=== PATIENT | female | born 1975 | race Caucasian/White ===

== ENCOUNTER 2017-03-09 17:49 | Emergency (ER) | payer BC ==
[2017-03-09 18:25] VITALS: BP 113/82
--- NOTE | 2017-03-09 18:35 | UC ---
FLU HPI - HPI Summary HPI Summary: came home from work sick--fatigue fever worsening cough, - History of Current Complaint Chief Complaint: UCRespiratory Stated Complaint: COUGH/FATIGUE/CONGESTION Time Seen by Provider: 03/09/17 18:15 Hx Obtained From: Patient Hx Last Menstrual Period: ONSET TODAY ?: No Onset/Duration: Sudden Onset, Lasting Days - 2, Still Present Severity Currently: Moderate Severity Initially: Moderate Pain Intensity: 6 Pain Scale Used: 0-10 Numeric Associated Signs & Symptoms: Positive: Fever, Myalgia, Cough, Sore Throat, Headache Related Hx: Possible Flu/Infectious Exposure - Allergy/Home Medications Allergies/Adverse Reactions: Allergies Allergy/AdvReac Type Severity Reaction Status Date / Time No Known Allergies Allergy Verified 03/09/17 18:14 PMH/Surg Hx/FS Hx/Imm Hx Previously Healthy: Yes - psorasis - Surgical History Surgical History: Yes Surgery Procedure, Year, and Place: left knee 1996, right labriium 1999 and 2013 ; facial - Family History Known Family History: Positive: None, Other - mother has hx of osteoporosis - Social History Occupation: Employed Full-time Lives: With Family Alcohol Use: Occasionally Substance Use Type: None Smoking Status (MU): Never Smoked Tobacco - Immunization History Most Recent Influenza Vaccination: NOT IN 2017 Review of Systems Constitutional: Fever, Chills, Fatigue Skin: Negative Eyes: Negative ENT: Sore Throat Respiratory: Cough Cardiovascular: Chest Pain - center of chest with cough Gastrointestinal: Negative Genitourinary: Negative Motor: Negative Neurovascular: Negative Musculoskeletal: Arthralgia, Myalgia Neurological: Negative, Headache Psychological: Negative Is Patient Immunocompromised?: No All Other Systems Reviewed And Are Negative: Yes Physical Exam Triage Information Reviewed: Yes Appearance: Ill-Appearing, Pain Distress, Thin Vital Signs: Initial Vital Signs Temp 100.2 F 03/09/17 18:16 Pulse 112 03/09/17 18:16 Resp 18 03/09/17 18:16 BP 113/82 03/09/17 18:16 Pulse Ox 97 03/09/17 18:16 Vital Signs Reviewed: Yes Eye Exam: Normal Eyes: Positive: Conjunctiva Clear ENT Exam: Normal ENT: Positive: Normal ENT inspection, Hearing grossly normal, Pharynx normal, TMs normal, Uvula midline. Negative: Nasal congestion, Tonsillar swelling, Tonsillar exudate, Trismus, Muffled voice, Hoarse voice, Dental tenderness Dental Exam: Normal Neck exam: Normal Neck: Positive: Supple, Nontender, No Lymphadenopathy Respiratory Exam: Normal Respiratory: Positive: Chest non-tender, Lungs clear, Normal breath sounds, No respiratory distress, No accessory muscle use Cardiovascular Exam: Normal Cardiovascular: Positive: RRR, No Murmur, Pulses Normal, Brisk Capillary Refill Musculoskeletal Exam: Normal Musculoskeletal: Positive: Strength Intact, ROM Intact, No Edema Neurological Exam: Normal Neurological: Positive: Alert, Muscle Tone Normal Psychological Exam: Normal Skin Exam: Normal - Additional Comments Did not get flu vaccine 2016/2017 season Flu Course/Dx - Course Course Of Treatment: levaquin, tylenol ibuprofen robitussin and codiene follow with pcp - Differential Dx/Diagnosis Provider Diagnoses: RML Pneumonia Discharge - Discharge Plan Condition: Stable Disposition: HOME Prescriptions: Guaifenesin-Codeine [Guaiatussin AC] 5 - 10 ml PO Q6HR PRN #60 ml MDD 40ml PRN Reason: cough Levofloxacin TAB* [Levaquin TAB*] 500 mg PO DAILY #10 tab Patient Education Materials: Pneumonia (ED) Referrals: [facility] [[facility]] - 3 Days
[2017-03-09] MEDS ORDERED: guaiFENesin/CODIEN 100MG-10MG* 5 ML UDC PO ONE (18:51)
--- NOTE | 2017-03-09 19:34 | RAD ---
INDICATION: Cough, fever, shortness of breath. COMPARISON: No relevant prior exams available on the [facility] for comparison. TECHNIQUE: Dual energy PA and routine lateral views of the chest were obtained. REPORT: Alveolar consolidation at the RIGHT middle lobe consistent with pneumonia. Negative for pleural effusion or pneumothorax. Elevated lung volumes. The heart, pulmonary vasculature, and mediastinal contours are unremarkable. IMPRESSION: RIGHT middle lobe pneumonia. Radiographic follow-up after therapy suggested to assess for resolution and exclude an underlying predisposing lesion.
== END 2017-03-09 19:34 | disposition home or self-care (01) ==
LOC: UCCORT 17:49
DX: J18.1 Lobar pneumonia, unspecified organism (principal)
CPT/HCPCS: 71046; 87502; 99212; A9270-GY; G0463

== ENCOUNTER 2018-02-07 08:06 | Emergency (ER) | payer BC, OTHER ==
[2018-02-07 08:36] VITALS: BP 132/63
--- NOTE | 2018-02-07 09:26 | UC ---
Respiratory Complaint HPI - HPI Summary HPI Summary: The patient is a 42-year-old female that slipped as she exited her car at work. She complains of right clavicular pain near where it meets up with her sternum. She denies any other injury. She moves her right arm. The pain worsens and shoots down her arm. She denies any shortness of breath. He denies any neck pain. - History of Current Complaint Chief Complaint: UCTrauma Stated Complaint: WC-SP FALL-CHEST/SHOULDER INJURY Time Seen by Provider: 02/07/18 09:11 Hx Obtained From: Patient Hx Last Menstrual Period: 01/20/18 Onset/Duration: Sudden Onset, Lasting Days Severity Initially: Moderate Severity Currently: Moderate Pain Intensity: 5 - declines analgesic Pain Scale Used: 0-10 Numeric Aggravating Factors: Nothing Alleviating Factors: Nothing - Allergies/Home Medications Allergies/Adverse Reactions: Allergies Allergy/AdvReac Type Severity Reaction Status Date / Time No Known Allergies Allergy Verified 02/07/18 08:36 PMH/Surg Hx/FS Hx/Imm Hx Previously Healthy: Yes - Surgical History Surgical History: Yes Surgery Procedure, Year, and Place: left knee 1996, right labriium 1999 and 2013 ; facial - Family History Known Family History: Positive: None, Other - mother has hx of osteoporosis Negative: Cardiac Disease, Hypertension - Social History Alcohol Use: Occasionally Substance Use Type: None Smoking Status (MU): Never Smoked Tobacco - Immunization History Most Recent Influenza Vaccination: NOT IN 2017 Review of Systems All Other Systems Reviewed And Are Negative: Yes Constitutional: Positive: Negative Skin: Positive: Negative Eyes: Positive: Negative ENT: Positive: Negative Respiratory: Positive: Negative Cardiovascular: Positive: Negative Gastrointestinal: Positive: Negative Genitourinary: Positive: Negative Motor: Positive: Negative Neurovascular: Positive: Negative Musculoskeletal: Positive: Negative Neurological: Positive: Negative Psychological: Positive: Negative Physical Exam Triage Information Reviewed: Yes Appearance: Well-Appearing, No Pain Distress, Well-Nourished Vital Signs: Initial Vital Signs Temp 97.2 F 02/07/18 08:32 Pulse 91 02/07/18 08:32 Resp 18 02/07/18 08:32 BP 132/63 02/07/18 08:32 Pulse Ox 100 02/07/18 08:32 Vital Signs Reviewed: Yes Eyes: Positive: Conjunctiva Clear ENT: Positive: Hearing grossly normal. Negative: Nasal congestion, Nasal drainage, Trismus, Muffled voice, Hoarse voice Neck: Positive: Supple, Nontender, No Lymphadenopathy Respiratory: Positive: Lungs clear, Normal breath sounds, No respiratory distress, No accessory muscle use. Negative: Chest non-tender Cardiovascular: Positive: RRR Abdominal Exam: Normal Musculoskeletal: Positive: ROM Intact, No Edema Neurological: Positive: Alert Psychological Exam: Normal Skin Exam: Normal Images Front/Back of Body, Lg ([place]): 1 - tender here UC Diagnostic Evaluation - Laboratory O2 Sat by Pulse Oximetry: 100 - normal/not hypoxic - Radiology Radiology Interpretation Completed By: ED Physician Summary of Radiographic Findings: no clavicular fx Respiratory Course/Dx - Differential Dx/Diagnosis Provider Diagnosis: Sternoclavicular separation Discharge - Sign-Out/Discharge Documenting (check all that apply): Patient Departure All imaging exams completed and their final reports reviewed: Yes - Discharge Plan Condition: Stable Disposition: HOME Patient Education Materials: Sprain (ED), How to Use a Sling (ED), Ice Pack Application (ED) Forms: *Work Release Referrals: Jf Flores MD [Medical Doctor] - 1 Week Additional Instructions: I think you have a right STERNOCLAVICULAR SEPARATION sling for comfort ice twice daily tylenol or advil if needed - Billing Disposition and Condition Condition: STABLE Disposition: Home
== END 2018-02-07 10:18 | disposition home or self-care (01) ==
LOC: UCCORT 08:06
DX: S43.204A Unspecified dislocation of right sternoclavicular joint, initial encounter (principal); V48.4XXA Person boarding or alighting a car injured in noncollision transport accident, initial encounter; Y92.89 Other specified places as the place of occurrence of the external cause; Y99.0 Civilian activity done for income or pay
CPT/HCPCS: 99212; G0463

== ENCOUNTER 2018-12-16 14:05 | Emergency (ER) | payer BC, OTHER ==
--- NOTE | 2018-12-16 14:29 | UC ---
Hand/Wrist HPI - HPI Summary HPI Summary: 43 yo female presents with LEFT wrist pain. She tells me that 2 months ago she was at a hockey game and a stray puck flew into the stands after a shot - impacted pt's left wrist. Since that time has had point tenderness at the hamate bone. Mild discomfort with ROM. She is right hand dominant. Denies numbness or tingling. - History Of Current Complaint Stated Complaint: LEFT WRIST INJURY Time Seen by Provider: 12/16/18 14:29 Hx Obtained From: Patient Hx Last Menstrual Period: 01/20/18 Onset/Duration: Sudden Onset Severity Initially: Moderate Severity Currently: Moderate Pain Intensity: 5 Pain Scale Used: 0-10 Numeric - Allergies/Home Medications Allergies/Adverse Reactions: Allergies Allergy/AdvReac Type Severity Reaction Status Date / Time No Known Allergies Allergy Verified 12/16/18 14:34 Home Medications: Home Medications Cetirizine* [ZyrTEC 10 MG TAB*] 10 mg PO DAILY 12/16/18 [History Confirmed 12/16] PMH/Surg Hx/FS Hx/Imm Hx - Additional Past Medical History Additional PMH: Psoriasis Seasonal allergies - Surgical History Surgical History: Yes Surgery Procedure, Year, and Place: left knee 1996, right labriium 1999 and 2013 ; facial - Family History Known Family History: Positive: None, Other - mother has hx of osteoporosis Negative: Cardiac Disease, Hypertension - Social History Lives: With Family Alcohol Use: Occasionally Substance Use Type: None Smoking Status (MU): Never Smoked Tobacco - Immunization History Most Recent Influenza Vaccination: NOT IN 2017 Review of Systems All Other Systems Reviewed And Are Negative: No Constitutional: Positive: Negative Skin: Positive: Negative Respiratory: Positive: Negative Cardiovascular: Positive: Negative Neurovascular: Positive: Negative Musculoskeletal: Positive: Other: - Left wrist pain Neurological: Positive: Negative Psychological: Positive: Negative Physical Exam - Summary Physical Exam Summary: GENERAL: NAD. WDWN. No pain distress. SKIN: No rashes, sores, lesions, or open wounds. CHEST: No accessory muscle use. Breathing comfortably and in no distress. CV: Pulses intact radial and ulnar. Cap refill <2seconds MSK: LEFT WRIST: TTP about hamate bone. NTTP ulnar or radius. FROM. 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 No edema or obvious bony deformities. No snuffbox tenderness. NEURO: Alert. Sensations intact hand and all fingers. PSYCH: Age appropriate behavior. Triage Information Reviewed: Yes Vital Signs: Vital Signs: Temp Pulse Resp BP Pulse Ox 98.7 F 81 16 102/59 100 12/16/18 14:30 12/16/18 14:30 12/16/18 14:30 12/16/18 14:30 12/16/18 14:30 Vital Signs Reviewed: Yes Diagnostics - Radiology Wrist XR Radiology Interpretation Completed By: Radiologist Summary of Radiographic Findings: FINDINGS: The soft tissues are unremarkable. The bone mineralization is within normal limits. No fracture is identified. Anatomic alignment is maintained. The joint spaces are preserved. IMPRESSION: No fracture or traumatic malalignment of the left wrist. Hand/Wrist Course/Dx - Course Course Of Treatment: XR as above. Given prolonged symptoms will place pt in a cock-up splint and refer her to Orthopedics. - Differential Dx/Diagnosis Provider Diagnosis: Wrist pain Discharge ED - Sign-Out/Discharge Documenting (check all that apply): Patient Departure All imaging exams completed and their final reports reviewed: Yes - Discharge Plan Condition: Stable Disposition: HOME Patient Education Materials: Wrist Injury (ED) Referrals: Valdez Velasco MD [Primary Care Provider] - Lloyd Fabian MD [Medical Doctor] - As Soon As Possible Additional Instructions: If you develop a fever, shortness of breath, chest pain, new or worsening symptoms - please call your PCP or go to the ED immediately. The X-Ray of your wrist was normal today. Given your prolonged symptoms and point tenderness on exam, I recommend you use the wrist splint as much as possible and call Orthopedics at the number below to schedule an appointment within 1 week for a recheck - Billing Disposition and Condition Condition: STABLE Disposition: Home - Attestation Statements Provider Attestation: Chart reviewed. Pt not seen by me. I was available for consult. CHRISTOPHE
[2018-12-16 14:34] VITALS: BP 102/59
== END 2018-12-16 15:12 | disposition home or self-care (01) ==
LOC: UCCORT 14:05
DX: M25.532 Pain in left wrist (principal)
CPT/HCPCS: 99212; G0463